=== PATIENT | male | born 1985 | race Caucasian/White ===

== ENCOUNTER 2017-04-26 10:44 | Emergency (ER) | payer BC ==
[2017-04-26] MEDS ORDERED: 0.9 % SODIUM CHLORIDE 10 ML DISP.SYRIN. IV ×2 (11:15)
[2017-04-26 11:35] LABS: ADD MAN DIFF? NO
[2017-04-26] MEDS: IV NORMAL SALINE 1000ML BAG 1,000 ML IV ×2 (11:45)
[2017-04-26 12:06] LABS: BASO % 0 % (0-3); EOS # 0.1 x10^3/uL (0.0-0.7); EOS % 1 % (0-3); HEMATOCRIT 41.7 % (39.0-53.0); HEMOGLOBIN 14.8 g/dL (13.0-17.5); LYMPH # 1.8 x10^3/uL (1.0-4.8); LYMPH % 21 % (24-48); MEAN CORPUSCULAR HEMOGLOBIN 30 pg (25-35); MEAN CORPUSCULAR HGB CONC 35 g/dL (31-37); MEAN CORPUSCULAR VOLUME 84 fL (79-100); MONO # 0.9 x10^3/uL (0.0-1.1); MONO % 11 % (0-9); NEUT # 5.7 x10^3uL (1.8-7.7); NEUT % 67 % (31-73); PLATELET COUNT 177 x10^3/uL (140-400); RED BLOOD COUNT 4.95 x10^6/uL (4.30-5.70); RED CELL DISTRIBUTION WIDTH 13.1 % (11.5-14.5); WHITE BLOOD COUNT 8.5 x10^3/uL (4.0-11.0)
[2017-04-26 12:13] LABS: ANION GAP 11 (6-14); BLOOD UREA NITROGEN 16 mg/dL (8-26); CALCIUM 9.5 mg/dL (8.5-10.1); CARBON DIOXIDE 29 mmol/L (21-32); CHLORIDE 101 mmol/L (98-107); CREATININE 0.9 mg/dL (0.7-1.3); GFR 99.1; GLUCOSE 95 mg/dL (70-99); POTASSIUM 3.9 mmol/L (3.5-5.1); SODIUM 141 mmol/L (136-145)
[2017-04-26 12:14] LABS: BILIRUBIN,URINE NEGATIVE (NEG); CLARITY,URINE CLEAR; COLOR,URINE YELLOW; GLUCOSE,URINE NEGATIVE (NEG); NITRITE,URINE NEGATIVE (NEG); PROTEIN,URINE NEGATIVE (NEG-TRACE)
[2017-04-26 12:18] LABS: ALK PHOS 98 U/L (46-116); ALT (SGPT) 53 U/L (16-63); AST (SGOT) 30 U/L (15-37); DIRECT BILIRUBIN 0.1 mg/dL (0.0-0.2); SQUAMOUS EPITHELIAL CELL,UR OCC /LPF; TOTAL BILIRUBIN 0.5 mg/dL (0.2-1.0); TOTAL PROTEIN 8.3 g/dL (6.4-8.2)
[2017-04-26 12:19] LABS: TROPONINI < 0.017 ng/mL (0.000-0.055)
[2017-04-26 12:19] LABS: BACTERIA,URINE FEW /HPF (0-FEW); HYALINE CASTS, URINE FEW /HPF; RBC,URINE 0 /HPF (0-2); WBC,URINE OCC /HPF (0-4)
[2017-04-26 12:23] LABS: NT-PRO BNP 8 pg/mL (0-124)
[2017-04-26 12:26] LABS: THYROID STIM HORMONE (TSH) 2.589 uIU/mL (0.358-3.74)
== END 2017-04-26 13:30 | disposition home or self-care (01) ==
LOC: ER 10:44
DX: R55 Syncope and collapse (principal); S92.322A Displaced fracture of second metatarsal bone, left foot, initial encounter for closed fracture; W19.XXXA Unspecified fall, initial encounter; Y93.89 Activity, other specified; Y92.89 Other specified places as the place of occurrence of the external cause; Y99.8 Other external cause status
CPT/HCPCS: 36415; 71046; 73562; 73610; 73630; 80048; 80076; 81001; 83880; 84443; 84484; 85025; 93005; 96360; 99285-25; J7030